=== PATIENT | female | born 1940 | race Caucasian/White ===

== ENCOUNTER 2017-02-20 02:48 | Emergency (ER) | payer MEDICARE, OTHER ==
--- NOTE | 2017-02-20 03:05 | EDM.PDOC ---
ED HPI GENERAL MEDICAL PROBLEM - General Chief Complaint: Respiratory Problem Stated Complaint: SOB Time Seen by Provider: 02/20/17 02:50 Source of Information: Reports: Patient History Limitations: Reports: No Limitations - History of Present Illness INITIAL COMMENTS - FREE TEXT/NARRATIVE: 76 yo female here with wheezing and SOB that began about MN as she was getting into bed. No cough, fever, or chest pain. No hx of asthma. Has not missed any of her meds. Here via private vehicle. Sx's worse with lying down. Onset: Today Onset Date: 02/20/17 Onset Time: 00:00 Duration: Hour(s):, Constant Location: Reports: Chest Severity: Mild Improves with: Reports: Other (is better on arrival in the upright position) Worsens with: Reports: Other (lying) Context: Reports: Other (unknown) Associated Symptoms: Reports: Shortness of Breath (mild). 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) (none) - Related Data Allergies Allergy/AdvReac Type Severity Reaction Status Date / Time Sulfa (Sulfonamide Allergy Rash Verified 02/20/17 03:03 Antibiotics) Home Meds: Home Meds Calcium Carbonate 600 mg PO BID 09/07/15 [History] Cyanocobalamin (Vitamin B-12) [Vitamin B-12] 1,000 mcg PO DAILY 09/07/15 [ History] Dextran 70/Hypromellose [Genteal Tears 0.1%-0.3% Drop] 1 drop EYEBOTH BID [History] Fluticasone Propionate [Flonase] 1 spray NASBOTH DAILY PRN 09/07/15 [History] Gabapentin [Neurontin] 300 mg PO BEDTIME 09/07/15 [History] Hydrochlorothiazide 25 mg PO DAILY 09/07/15 [History] Insulin Detemir [Levemir] 24 units SQ QAM 09/07/15 [History] Insulin Detemir [Levemir] 34 units SQ BEDTIME 09/07/15 [History] Iron Polysaccharide Complex [Polysaccharide Iron 150] 150 mg PO DAILY 09/07/15 [ History] Latanoprost 1 drop EYEBOTH BEDTIME 09/07/15 [History] Multivitamin [Multi-Vitamin Daily] 1 tab PO DAILY 09/07/15 [History] Omeprazole 20 mg PO DAILY 09/07/15 [History] Timolol Maleate [Timoptic-XE 0.5% Ophth Gel] 1 drop EYEBOTH QAM 09/07/15 [ History] Vit C/[place] Ac/Lut/Copper/ZnOx [Preservision Lutein Softgel] 1 cap PO BID [History] amLODIPine Besylate [Amlodipine Besylate] 10 mg PO DAILY 09/07/15 [History] atorvaSTATin [Lipitor] 40 mg PO BEDTIME 09/07/15 [History] Furosemide 10 mg PO DAILY 09/17/15 [History] Acetaminophen [Tylenol] 650 mg PO Q4H PRN #0 tablet 09/21/15 [Rx] Insulin Aspart [NovoLOG] 6 unit SUBCUT DAILY@08 pen 09/25/15 [Rx] Aspirin [Halfprin] 81 mg PO DAILY 12/18/15 [History] Insulin Aspart [NovoLOG] 11 unit SUBCUT DAILY@1200 12/18/15 [History] [place]-3/DHA/Epa/Fish Oil [[place] 3 500 Softgel] 1,000 mg PO BID 12/18/15 [History ] Vit A/Vit C/Vit E/Zinc/Copper [Preservision] 1 ea PO BID 01/24/16 [History] Insulin Aspart [NovoLOG] 13 unit SUBCUT DAILY@18 02/20/17 [History] Lisinopril 20 mg PO DAILY 02/20/17 [History] Metoprolol Succinate 200 mg PO BID 02/20/17 [History] Past Medical History HEENT History: Reports: Cataract, Impaired Vision Cardiovascular History: Reports: High Cholesterol, Hypertension, SOB on Exertion , Other (See Below) Other Cardiovascular History: previous hospitalization for complaint of chest pain Respiratory History: Reports: SOB Gastrointestinal History: Reports: GERD Genitourinary History: Reports: None GRINDER GEAR History: Reports: Other OB/BYN History: P-3/ G-3 Musculoskeletal History: Reports: Arthritis, Fracture, Other (See Below) Other Musculoskeletal History: GENERALIZED ARTHRITIS, FX RIGHT PATELLA Neurological History: Reports: None Psychiatric History: Reports: None Endocrine/Metabolic History: Reports: Diabetes, Type II Hematologic History: Reports: Anemia, Iron Deficiency, Other (See Below) Other Hematologic History: PT ON IRON PILLS AT PRESENT TIME. Immunologic History: Reports: None Oncologic (Cancer) History: Reports: None Dermatologic History: Reports: None - Infectious Disease History Infectious Disease History: Reports: Chicken Pox, Measles, Mumps, Other (See Below) Other Infectious Disease History: HAD YELLOW JAUNDICE A CHILD VOICED BY PT. - Past Surgical History HEENT Surgical History: Reports: Cataract Surgery, Other (See Below) Female Surgical History: Reports: Breast Biopsy, Tubal Ligation, Other (See Below) Musculoskeletal Surgical History: Reports: Knee Replacement, ORIF, Shoulder Surgery, Other (See Below) Social & Family History - Family History Family Medical History: Unobtainable Other HEENT Family History: SEE H&P - Tobacco Use Smoking Status *Q: Never Smoker Second Hand Smoke Exposure: No - Caffeine Use Caffeine Use: Reports: Coffee Other Caffeine Use: TWO CUPS EVERY AM. - Recreational Drug Use Recreational Drug Use: No Drug Use in Last 12 Months: No ED ROS GENERAL - Review of Systems Review Of Systems: See Below Constitutional: Reports: No Symptoms HEENT: Reports: No Symptoms Respiratory: Reports: Shortness of Breath, Wheezing. Denies: Pleuritic Chest Pain, Cough, Sputum, Hemoptysis Cardiovascular: Reports: No Symptoms GI/Abdominal: Reports: No Symptoms : Reports: No Symptoms Musculoskeletal: Reports: No Symptoms Skin: Reports: No Symptoms ED EXAM, GENERAL - Physical Exam Exam: See Below Exam Limited By: No Limitations General Appearance: Alert, WD/WN, No Apparent Distress Eye Exam: Bilateral Eye: Normal Inspection Ears: Normal External Exam, Normal Canal, Hearing Grossly Normal, Normal TMs Ear Exam: Bilateral Ear: Auricle Normal, Canal Normal Nose: Normal Inspection, Normal Mucosa, No Blood, Nasal Deformity Throat/Mouth: Normal Inspection, Normal Lips, Normal Teeth, Normal Oropharynx, Normal Voice, No Airway Compromise Head: Atraumatic, Normocephalic Neck: Normal Inspection, Supple, Non-Tender Respiratory/Chest: No Respiratory Distress, Decreased Breath Sounds, Wheezing Cardiovascular: Regular Rate, Rhythm GI/Abdominal: Normal Bowel Sounds, Soft, Non-Tender, No Distention Back Exam: Normal Inspection. No: CVA Tenderness (R), CVA Tenderness (L) Extremities: Normal Inspection, Normal Range of Motion, Non-Tender, No Pedal Edema Neurological: Alert, Oriented, CN II-XII Intact, Normal Cognition, No Motor/ Sensory Deficits Psychiatric: Normal Affect, Normal Mood Skin Exam: Warm, Dry, Intact, Normal Color, No Rash Lymphatic: No Adenopathy Course - Vital Signs Last Recorded V/S: Last Vital Signs Temp 36.6 C 02/20/17 02:55 Pulse 78 02/20/17 02:55 Resp 16 02/20/17 02:55 BP 146/70 H 02/20/17 04:00 Pulse Ox 94 L 02/20/17 04:00 - Orders/Labs/Meds Orders: Active Orders 24 hr Category Date Time Status Chest 2V [CR] Stat Exams 02/20/17 02:58 Taken Sodium Chloride 0.9% [Saline Flush] Med 02/20/17 03:16 Active 10 ml FLUSH ASDIRECTED PRN Saline Lock Insert [OM.PC] Routine Oth 02/20/17 03:16 Ordered Medication Orders Sodium Chloride (Saline Flush) 10 ml FLUSH ASDIRECTED PRN PRN Reason: Keep Vein Open Last Admin: 02/20/17 03:57 Dose: 10 ml Labs: Laboratory Tests 02/20/17 02/20/17 02/20/17 Range/Units 03:28 03:28 03:28 WBC 8.8 (4.5-12.0) X10-3/uL RBC 4.13 (3.23-5.20) x10(6)uL Hgb 11.6 (11.5-15.5) g/dL Hct 34.2 (30.0-51.3) % MCV 82.8 (80-96) fL MCH 28.1 (27.7-33.6) pg MCHC 33.9 (32.2-35.4) g/dL RDW 14.6 (11.5-15.5) % Plt Count 256 (125-369) X10(3)uL Sodium 141 (135-145) mmol/L Potassium 3.6 (3.5-5.3) mmol/L Chloride 106 D (100-110) mmol/L Carbon Dioxide 28 (23-29) mmol/L BUN 14 (8-23) mg/dL Creatinine 1.0 (0.6-1.3) mg/dL Est Cr Clr Drug Dosing TNP Estimated GFR (MDRD) 54 L (>60) BUN/Creatinine Ratio 14.0 (9-20) Glucose 143 H (80-116) mg/dL Calcium 9.0 (8.6-10.2) mg/dL Troponin I 0.01 L (0.02-0.06) NG/ML NT-Pro-B Natriuret Pep 1026 H (5-450) pg/mL 02/20/17 Range/Units 05:48 WBC (4.5-12.0) X10-3/uL RBC (3.23-5.20) x10(6)uL Hgb (11.5-15.5) g/dL Hct (30.0-51.3) % MCV (80-96) fL MCH (27.7-33.6) pg MCHC (32.2-35.4) g/dL RDW (11.5-15.5) % Plt Count (125-369) X10(3)uL Sodium (135-145) mmol/L Potassium (3.5-5.3) mmol/L Chloride (100-110) mmol/L Carbon Dioxide (23-29) mmol/L BUN (8-23) mg/dL Creatinine (0.6-1.3) mg/dL Est Cr Clr Drug Dosing Estimated GFR (MDRD) (>60) BUN/Creatinine Ratio (9-20) Glucose (80-116) mg/dL Calcium (8.6-10.2) mg/dL Troponin I 0.02 (0.02-0.06) NG/ML NT-Pro-B Natriuret Pep (5-450) pg/mL Meds: Medications Generic Name Dose Route Start Last Admin Trade Name Freq PRN Reason Stop Dose Admin Sodium Chloride 10 ml 02/20/17 03:16 02/20/17 03:57 Saline Flush FLUSH 10 ml ASDIRECTED PRN Administration Keep Vein Open Discontinued Medications Generic Name Dose Route Start Last Admin Trade Name Freq PRN Reason Stop Dose Admin Furosemide 40 mg 02/20/17 03:16 02/20/17 03:56 Lasix IVPUSH 02/20/17 03:17 40 mg NOW ONE Administration - Radiology Interpretation Free Text/Narrative:: CXR-? slightly increased interstitial edema Departure - Departure Time of Disposition: 07:00 Disposition: Home, Self-Care 01 Condition: Fair Clinical Impression: Congestive heart failure Qualifiers: Congestive heart failure type: systolic Congestive heart failure chronicity: acute Qualified Code(s): I50.21 - Acute systolic (congestive) heart failure HTN (hypertension) Qualifiers: Hypertension type: essential hypertension Qualified Code(s): I10 - Essential ( primary) hypertension - Discharge Information Referrals: Jada Farooq NP [Primary Care Provider] - Forms: ED Department Discharge - My Orders Last 24 Hours: My Active Orders 02/20/17 02:58 Chest 2V [CR] Stat 02/20/17 03:16 Sodium Chloride 0.9% [Saline Flush] 10 ml FLUSH ASDIRECTED PRN Saline Lock Insert [OM.PC] Routine - Assessment/Plan Last 24 Hours: My Active Orders 02/20/17 02:58 Chest 2V [CR] Stat 02/20/17 03:16 Sodium Chloride 0.9% [Saline Flush] 10 ml FLUSH ASDIRECTED PRN Saline Lock Insert [OM.PC] Routine
[2017-02-20] MEDS ORDERED: Furosemide 40 MG/4 ML VIAL IVPUSH ONE (03:16)
[2017-02-20] MEDS ORDERED: Sodium Chloride 0.9% 10 ML Syringe FLUSH PRN (03:16)
[2017-02-20 07:07] VITALS: BP 130/70
--- NOTE | 2017-02-22 12:20 | CR ---
INDICATION: Wheezing, shortness of breath, orthopnea. CHEST, PA AND LATERAL: No prior examinations for comparison. The heart is mildly prominent. There is diffuse interstitial changes over the lungs bilaterally, which I suspect is probably vascular prominence consistent with failure. Certainly the possibility of a diffuse interstitial pneumonitis/ pneumonia or the like would be difficult to rule out, although less likely in my opinion. There is hyperinflation consistent with COPD. There is some fluid in the oblique fissure on the lateral projection. IMPRESSION: 1. Likely congestive failure with early pulmonary edema. 2. COPD. MTDD
== END 2017-02-20 07:13 | disposition home or self-care (01) ==
LOC: FB.ED 02:48
DX: I11.0 Hypertensive heart disease with heart failure (principal); I50.21 Acute systolic (congestive) heart failure; E78.00 Pure hypercholesterolemia, unspecified; E11.9 Type 2 diabetes mellitus without complications; K21.9 Gastro-esophageal reflux disease without esophagitis; Z79.4 Long term (current) use of insulin; Z88.2 Allergy status to sulfonamides; Z79.899 Other long term (current) drug therapy
CPT/HCPCS: 36415; 71020; 80048; 83880; 84484; 85027; 96374; 99285; J1940; J7050; 99284